=== PATIENT | female | born 1970 | race Caucasian/White ===

== ENCOUNTER → 2023-12-15 07:55 | Outpatient (REF) | payer BC, SELFPAY ==
[2023-12-15 08:47] LABS: % Basophils 0.8 % (0-2); % Eosinophils 2.3 % (0-6); % Immature Granulocytes 0.3 % (0-0.5); % Lymphocytes 24.8 % (20.5-51.1); % Monocytes 7.8 % (1.7-9.3); Absolute Basophils 0.1 10^3/uL (0-0.2); Absolute Eosinophils 0.2 10^3/uL (0-0.7); Absolute Lymphocytes 1.9 10^3/uL (1.2-3.4); Absolute Monocytes 0.6 10^3/uL (0.1-0.6); Hematocrit 38.6 % (37.0-47.0); Hemoglobin 13.8 g/dL (12.0-16.0); Mean Corp Hgb Conc. 35.8 g/dL (33.0-37.0); Mean Corpuscular Hgb 30.2 pg (27.0-31.0); Mean Corpuscular Volume 84.5 fL (81.0-99.0); Mean Platelet Volume 10.2 fL (7.4-10.4); Nucleated Red Blood Cells % 0 %; Platelet Count 223 10^3/uL (130-400); Red Blood Cell Count 4.57 10^6/uL (4.20-5.40); Red Cell Dist. Width 12.5 % (11.5-14.5); White Blood Cell Count 7.8 10^3/uL (4.8-10.8)
[2023-12-15 09:43] LABS: ALT (SGPT) 23 U/L (0-35); AST (SGOT) 29 U/L (14-36); Albumin 3.5 g/dl (3.5-5.0); Alkaline Phosphatase 79 U/L (38-126); Blood Urea Nitrogen 24 mg/dl (7-17); Calcium 9.3 mg/dl (8.4-10.2); Carbon Dioxide 26 mmol/L (22-30); Chloride 104 mmol/L (98-107); Glucose 91 mg/dl (70-99); HDL Cholesterol 73 mg/dl; LDL Cholesterol, Calculated 65 mg/dl; Potassium 4.2 mmol/L (3.5-5.1); Sodium 136 mmol/L (135-145); Total Bilirubin 0.5 mg/dl (0.2-1.3); Total Cholesterol 147 mg/dl (50-199); Total Protein 6.1 g/dl (6.3-8.2); Triglyceride 49 mg/dl (10-149); Very Low Density Lipoprotein 9 mg/dl (0-30); eGFR > 60.00
[2023-12-15 10:02] LABS: TSH Reflex To Free T4 1.38 uIU/ml (0.47-4.68)
[2023-12-15 13:12] LABS: Urine Albumin Negative (Neg - Trace); Urine Bilirubin Negative (Negative); Urine Character Clear (Clear); Urine Color Yellow; Urine Glucose Negative (Negative); Urine Ketone Negative (Negative); Urine Leukocyte Negative (Negative); Urine Nitrite Negative (Negative); Urine Occult Blood Trace (Negative); Urine Urobilinogen Negative (Neg - 1+)
[2023-12-15 13:53] LABS: Urine Red Blood Cell 0-2 /HPF (0-2)
[2023-12-15 13:56] LABS: Urine Bacteria Moderate (Negative)
[2023-12-15 13:57] LABS: Urine White Cell 0-2 /HPF (0-5)
== END ==
LOC: REG 07:55
PROVIDERS: ATTENDING PHYSICIAN Emergency Medicine
DX: Z00.00 Encounter for general adult medical examination without abnormal findings (principal)
CPT/HCPCS: 36415; 80053; 80061; 81003; 81015; 84443; 85025

== ENCOUNTER → 2023-12-29 08:49 | Outpatient (REF) | payer BC, SELFPAY ==
[2023-12-29 10:40] LABS: ALT (SGPT) 28 U/L (0-35); AST (SGOT) 29 U/L (14-36); Albumin 3.8 g/dl (3.5-5.0); Alkaline Phosphatase 91 U/L (38-126); Blood Urea Nitrogen 38 mg/dl (7-17); Carbon Dioxide 24 mmol/L (22-30); Chloride 102 mmol/L (98-107); Glucose 89 mg/dl (70-99); Potassium 5.1 mmol/L (3.5-5.1); Sodium 138 mmol/L (135-145); Total Bilirubin 0.4 mg/dl (0.2-1.3); Total Protein 6.7 g/dl (6.3-8.2); eGFR > 60.00
== END ==
LOC: REG 08:49
PROVIDERS: ATTENDING PHYSICIAN Emergency Medicine
DX: R79.89 Other specified abnormal findings of blood chemistry (principal); R82.90 Unspecified abnormal findings in urine
CPT/HCPCS: 36415; 80053; 87086

== ENCOUNTER 2024-08-06 08:27 | Emergency (ER) | payer BC, SELFPAY ==
--- NOTE | 2024-08-06 08:54 | ED.GENMED ---
History of Present Illness
General
Chief Complaint: Musculo-Skeletal Complaint
Source: patient
Exam Limitations: none
Time Seen by Provider: 08/06/24 08:44
Nursing documentation reviewed up to this point in time: agreed with
History of Present Illness
History of Present Illness:
Patient is a 54-year-old female who presents to the ER complaining left foot pain. She reports for the past week she has had pain in the left foot. 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 She saw orthopedics last week and
thought she may have tendinitis and discharged her on meloxicam and steroids. She is still taking medication but this morning tried to run and about the fifth step into the run heard and felt a crack in her left foot. Pt now has pain with weight
bearing.
Review of Systems
Review of Systems
Allergies reviewed?: Yes
All Other Systems: ROS reviewed and negative except as documented in HPI and ROS
Constitutional: Reports no symptoms; Denies fever, fatigue or chills
Musculoskeletal: Reports other (left foot pain )
Skin: Reports no symptoms
Psychiatric: Reports no symptoms
Phy Exam
General Physical Exam
General Presentation: no apparent distress
General age: appears stated age
General Skin: warm and dry
General Habitus: normal
General Mental: alert
General Hydration: appears well hydrated
Neurological Exam
Neurological Exam: alert
Musculoskeletal Exam
Musculoskeletal Exam: full ROM and other (lle with strong pulses no obvious swelling however patient with tenderness to the distal second metatarsal)
Skin Exam
Skin Exam: normal color and warm/dry
Psychiatric Exam
Psychiatric Exam: normal mood/affect
Course
Orders/Labs/Results
Orders:
Orders
08/06/24 08:53
Foot, Left 3 View [CR Foot - Left Min 3 Views] Urgent
Comment:
Reason For Exam: trauma
08/06/24 09:53
Splints/Slings/Crut- Treatment ONCE
Location: Left
Type of Splint: Short Leg
08/06/24 09:54
Crutches-Treatment ONCE
Acetaminophen [Tylenol] 650 mg PO NOW STA
08/06/24 09:55
Vital Signs- Treatment ONCE
Frequency: Once
Vital Signs
Initial and Last Documented VS:
Initial Vital Signs
Temp Pulse Resp Pulse Ox
97.8 F 54 16 100
08/06/24 08:29 08/06/24 08:29 08/06/24 08:29 08/06/24 08:29
Last Documented Vital Signs
Temp Pulse Resp BP Pulse Ox
97.8 F 85 16 138/73 98
08/06/24 08:29 08/06/24 10:07 08/06/24 08:29 08/06/24 10:07 08/06/24 10:07
MDM/Problems Addressed
Differential Diagnosis Includes:
Not limited to contusion sprain stress fracture fracture
MDM/Problems Addressed:
Patient with transverse fracture through the distal shaft of the second metatarsal without displacement due to patient's pain will immobilize with splint DC with crutches, NSAIDs and outpatient Ortho follow-up. Patient was taking prednisone for
possible tendinitis on meloxicam she reports meloxicam is not working. Will have patient stop meloxicam and prednisone will have patient alternate between ibuprofen and Tylenol
*Radiology
Radiology exam reviewed: radiology read reviewed
*Critical Care Note
Total Time (30-74mins, 75-104mins- exclusive of procedures): Not Applicable
ED Attending Note
-
Portions of this chart may have been created with voice recognition software.� Occasional wrong word or��sound alike� substitutions may have occurred due to the inherent limitations of voice recognition software.
Discharge Plan
Departure
Patient Disposition: Home (Routine Discharge)
Date of Disposition: 08/06/24
Time of Disposition: 09:56
Patient with high blood pressure during this ER visit?: Yes
Condition: Fair
Covid-19: Not Applicable
Discharge Problem:
Metatarsal fracture
Instructions: How to Use Crutches, Foot Fracture (DC), Splint Care, BLOOD PRESSURE
Referrals:
Dominique Erickson MD [Family Provider] -
Roddy Rivera DPM [Active] -
Stand Alone Forms: Return to Work
Activity Restrictions/Additional Instructions:
As discussed wear splint for support until seen and evaluated by orthopedics/podiatry. Do not wet splint. Keep elevate is much as possible. Ice over the affected area for the next 24 to 48 hours 20 minutes at a time several times a day. Use
crutches for ambulation and crutches on steps. Call orthopedics tomorrow for an appointment the next several days and return for any worsening of symptoms, if increased pain cold numb or blue toes. You may stop prednisone and meloxicam and start
alternating should ibuprofen and Tylenol.
Interventions
Interventions:
*Risk Screen - Suicide Last Done: 08/06/24 08:33
*Neglect/Abuse Screening Last Done: 08/06/24 08:33
ED-Musculoskeletal Assessment Last Done: 08/06/24 10:07
Discharge Date and Time
Print Language: FRENCH
[2024-08-06] MEDS: TYLENOL 650 MG PO (10:04)
[2024-08-06 10:07] VITALS: BP 138/73
== END 2024-08-06 10:39 | disposition home or self-care (01) ==
LOC: EMR 08:27
PROVIDERS: EMERGENCY PHYSICIAN Emergency Medicine; FAMILY PHYSICIAN Emergency Medicine
DX: S92.325A Nondisplaced fracture of second metatarsal bone, left foot, initial encounter for closed fracture (principal); X58.XXXA Exposure to other specified factors, initial encounter
CPT/HCPCS: 99283; 29125; 73630

== ENCOUNTER → 2024-10-26 11:52 | Outpatient (REF) | payer BC, SELFPAY | LOC: WDC 11:52 | PROVIDERS: ATTENDING PHYSICIAN Nurse Practitioner Family; FAMILY PHYSICIAN Emergency Medicine | DX: Z12.31 Encounter for screening mammogram for malignant neoplasm of breast (principal) | CPT/HCPCS: 77063; 77067 ==

== ENCOUNTER → 2025-02-08 07:33 | Outpatient (REF) | payer BC, SELFPAY ==
[2025-02-08 08:30] LABS: % Basophils 0.9 % (0-2); % Eosinophils 4.8 % (0-6); % Immature Granulocytes 0.2 % (0-0.5); % Lymphocytes 33.2 % (20.5-51.1); % Monocytes 9.7 % (1.7-9.3); % Neutrophils 51.2 % (42.2-75.2); Absolute Basophils 0.1 10^3/uL (0-0.2); Absolute Eosinophils 0.3 10^3/uL (0-0.7); Absolute Monocytes 0.6 10^3/uL (0.1-0.6); Hemoglobin 14.2 g/dL (12.0-16.0); Mean Corp Hgb Conc. 33.8 g/dL (33.0-37.0); Mean Corpuscular Hgb 30.2 pg (27.0-31.0); Mean Corpuscular Volume 89.4 fL (81.0-99.0); Mean Platelet Volume 10.1 fL (7.4-10.4); Nucleated Red Blood Cells % 0 %; Platelet Count 243 10^3/uL (130-400); Red Cell Dist. Width 12.5 % (11.5-14.5); White Blood Cell Count 5.9 10^3/uL (4.8-10.8)
[2025-02-08 09:05] LABS: Urine Albumin Negative (Neg - Trace); Urine Bilirubin Negative (Negative); Urine Character Clear (Clear); Urine Color Yellow; Urine Glucose Negative (Negative); Urine Ketone Negative (Negative); Urine Leukocyte 1+ (Negative); Urine Nitrite Negative (Negative); Urine Occult Blood 1+ (Negative); Urine Urobilinogen Negative (Neg - 1+)
[2025-02-08 09:27] LABS: Urine Squamous Cell 26-30 /LPF (Few); Urine Urothelial Cell 0-2 /LPF (FEW)
[2025-02-08 09:28] LABS: Urine Bacteria Few (Negative)
[2025-02-08 10:17] LABS: ALT (SGPT) 22 U/L (0-35); AST (SGOT) 28 U/L (14-36); Albumin 3.8 g/dl (3.5-5.0); Alkaline Phosphatase 99 U/L (38-126); Blood Urea Nitrogen 26 mg/dl (7-17); Calcium 9.2 mg/dl (8.4-10.2); Carbon Dioxide 27 mmol/L (22-30); Chloride 106 mmol/L (98-107); Glucose 75 mg/dl (70-99); HDL Cholesterol 79 mg/dl; LDL Cholesterol, Calculated 81 mg/dl; Potassium 4.4 mmol/L (3.5-5.1); Sodium 138 mmol/L (135-145); Total Bilirubin 0.6 mg/dl (0.2-1.3); Total Cholesterol 166 mg/dl (50-199); Total Protein 6.4 g/dl (6.3-8.2); Triglyceride 34 mg/dl (10-149); Very Low Density Lipoprotein 6 mg/dl (0-30); eGFR > 60.00
[2025-02-08 10:35] LABS: TSH Reflex To Free T4 0.78 uIU/ml (0.47-4.68)
== END ==
LOC: REG 07:33
PROVIDERS: ATTENDING PHYSICIAN Emergency Medicine
DX: Z00.00 Encounter for general adult medical examination without abnormal findings (principal)
CPT/HCPCS: 36415; 80053; 80061; 81003; 81015; 84443; 85025

== ENCOUNTER → 2025-02-13 13:15 | Outpatient (REF) | payer BC, SELFPAY | LOC: REG 13:15 | PROVIDERS: ATTENDING PHYSICIAN Emergency Medicine | DX: R82.90 Unspecified abnormal findings in urine (principal) | CPT/HCPCS: 87086 ==

== ENCOUNTER → 2025-03-21 14:10 | Outpatient (REF) | payer BC, SELFPAY | LOC: RAD 14:10 | PROVIDERS: ATTENDING PHYSICIAN Emergency Medicine | DX: Z13.820 Encounter for screening for osteoporosis (principal); Z87.81 Personal history of (healed) traumatic fracture | CPT/HCPCS: 77080 ==

== ENCOUNTER → 2025-04-10 07:34 | Outpatient (REF) | payer BC, SELFPAY | LOC: WDC 07:34 | PROVIDERS: ATTENDING PHYSICIAN Emergency Medicine | DX: R92.333 Mammographic heterogeneous density, bilateral breasts (principal) | CPT/HCPCS: 76641 ==

== ENCOUNTER → 2025-07-10 08:12 | Outpatient (REF) | payer BC, SELFPAY ==
[2025-07-10 15:15] LABS: FSH 46.7 mIU/ml
== END ==
LOC: REG 08:12
PROVIDERS: ATTENDING PHYSICIAN Nurse Practitioner Family; FAMILY PHYSICIAN Emergency Medicine
DX: N95.8 Other specified menopausal and perimenopausal disorders (principal)
CPT/HCPCS: 36415; 82670; 83001; 83002; 84443

== ENCOUNTER → 2025-08-23 07:27 | Outpatient (REF) | payer BC, SELFPAY | LOC: PAVMRI 07:27 | PROVIDERS: ATTENDING PHYSICIAN Orthopaedic Surgery; FAMILY PHYSICIAN Emergency Medicine | DX: M25.562 Pain in left knee (principal) | CPT/HCPCS: 73721 ==

== ENCOUNTER → 2025-10-24 10:09 | Outpatient (REF) | payer BC, SELFPAY | LOC: WDC 10:09 | PROVIDERS: ATTENDING PHYSICIAN Nurse Practitioner Family | DX: N64.4 Mastodynia (principal) | CPT/HCPCS: 76642; 77062; 77066 ==